=== PATIENT | male | born 1975 | race Caucasian/White ===

== ENCOUNTER 2016-09-01 06:30 | Emergency (ER) | payer MEDICAID ==
--- NOTE | ~2016-09-01 | ER ---
PATIENT'S NAME: FORREST GALLARDO [facility] AGE: 41 Y [address] ROOM: [place] [address] LOCATION: ED ADMIT DATE: 09/01/2016 ER/Outpatient Report DISCHARGE DATE: 09/01/2016 FAMILY PHYSICIAN: KIMI BENÍTEZ ATTENDING PHYSICIAN: Seth Coates CHIEF COMPLAINT: Right-sided abdominal pain. HISTORY OF PRESENT ILLNESS: The patient states that he woke up with pain this morning. The pain is aching and sharp. It does not radiate anywhere. He denies any recent injuries. He states he used methamphetamine last night. The pain started about an hour prior to arrival. He has not tried anything to make it better. He has a history of hepatitis and history of cholecystectomy. PAST MEDICAL HISTORY: Documented on the record and are reviewed by me. SOCIAL HISTORY: Documented on the record and are reviewed by me. MEDICATIONS: Documented on the record and are reviewed by me. ALLERGIES: DOCUMENTED ON THE RECORD AND ARE REVIEWED BY ME. REVIEW OF SYSTEMS: All systems reviewed and negative except as noted in the HPI. PHYSICAL EXAMINATION: VITAL SIGNS: Blood pressure 129/86, pulse 67, respiratory rate is 16, temperature 96.7, and SpO2 is 100% on room air. Pain is rated at 6/10. GENERAL: Age-appropriate male, in no obvious pain or discomfort. Resting comfortably on the exam table, indifferent to physician entrance and interacting with his phone. NEUROLOGIC: The patient is awake and alert. His GCS is 15. No focal deficits or asymmetry on exam. Walks without difficulty. HEENT: Normocephalic and atraumatic. The eyes are PERRL. The oropharynx is clear and moist. NECK: Supple. Trachea is midline. HEART: Regular rate and rhythm with no murmurs. LUNGS: Clear to auscultation bilaterally with no rhonchi, wheezes, or rales. ABDOMEN: Soft, nontender, and nondistended. No rebound or guarding. PATIENT'S NAME: FORREST GALLARDO [facility] AGE: 41 Y [address] ROOM: [place] [address] LOCATION: ED ADMIT DATE: 09/01/2016 ER/Outpatient Report DISCHARGE DATE: 09/01/2016 FAMILY PHYSICIAN: KIMI BENÍTEZ ATTENDING PHYSICIAN: Seth Coates BACK: Nontender to palpation throughout. No CVA tenderness. EXTREMITIES: Warm and well perfused. SKIN: Warm, dry, and intact. LABORATORY DATA AND IMAGING STUDIES: Labs and x-rays: Chest with abdominal films were unremarkable per my read. Labs: Sodium 142, potassium 3.6, chloride 106, CO2 is 29, BUN is 12, creatinine 0.7, and GFR is above 60. LFTs are within normal limits. Amylase and lipase at 71 and 389; CK-MB is 4.0, and troponin I is below threshold. GGT is 19. WBC is 7.3, hemoglobin 14.6, and platelets of 185,000. INR 0.9. Serum lactate is 1.0. IMPRESSION: Abdominal pain, not otherwise specified. EMERGENCY DEPARTMENT COURSE: The patient was evaluated. There was no concern for cardiac ischemia, but to be thorough, troponin was obtained. CK-MB is slightly elevated which I am attributing to a stimulant effect from his methamphetamines last night. He has no chest pain, no shortness of breath, and this is clearly below the costal margin. The patient was given a GI cocktail and Zofran with minimal improvement in his symptoms. He was offered Bentyl but declined. On multiple re-evaluations by both myself and the nurse, he was found to be sleeping and had to be woken up. His pain is not consistent with ischemic bowel. The patient was deemed appropriate for discharge. Recommend anti-inflammatories as needed and follow up with primary care physician. Return to the emergency department if worse. MD SMITA DELGADO/eric /[id number] d: 09/01/16 1733 t: 09/03/16 0631, OUTPATIENT REPORT
[2016-09-01 07:17] LABS: BASOPHIL % 0.5 %; EOSINOPHIL # 0.2 K/uL (0.0-0.5); EOSINOPHIL % 3.3 %; HEMATOCRIT 42.6 % (37.0-53.0); HEMOGLOBIN 14.6 g/dL (12.0-17.0); IMMATURE GRANULOCYTE % 0.3 %; LYMPHOCYTE # 3.2 K/uL (0.8-4.0); LYMPHOCYTE % 43.5 %; MCH 31.1 pg (27.0-34.0); MCHC 34.3 gm/dL (32.0-36.5); MCV 90.8 fl (83.0-98.0); MONOCYTE # 0.7 K/uL (0.0-1.0); MONOCYTE % 9.8 %; MPV 8.3 fl (9.4-12.4); NEUTROPHIL # (ANC) 3.1 K/uL (1.4-9.0); NEUTROPHIL % 42.6 %; NRBC % 0 /100WBC (0-0.00); PLATELET COUNT 185 K/uL (150-450); RBC 4.69 M/uL (4.00-6.00); RDW-CV 13.6 % (11.9-14.6); WBC 7.3 K/uL (4.0-11.0)
[2016-09-01 07:27] LABS: INR - (THERAPEUTIC) 0.9 (0.9-1.1); PROTIME 9.8 SECONDS (9.6-11.1); PTT 27 SECONDS (25-32)
[2016-09-01 07:41] LABS: ALBUMIN 3.6 gm/dL (3.5-5.0); ALK PHOS 66 IU/L (33-138); ALT 33 IU/L (12-78); ANION GAP 10.6 (10.0-19.0); AST 22 IU/L (10-40); BLOOD UREA NITROGEN 12 mg/dL (6-24); CALCIUM 8.5 mg/dL (8.5-10.5); CHLORIDE 106 mMol/L (96-110); CO2 29 mMol/L (22-32); CREATININE 0.7 mg/dL (0.6-1.3); ESTIMATED GFR (MDRD EQUATION) > 60; POTASSIUM 3.6 mMol/L (3.7-5.1); SODIUM 142 mMol/L (135-145); TOTAL BILIRUBIN 0.3 mg/dL (0.0-1.5); TOTAL PROTEIN 7.4 g/dL (6.0-8.4)
== END 2016-09-01 08:46 | disposition disaster alternative care site (69) ==
LOC: GMED 06:30
PROVIDERS: Emergency Medicine
DX: R10.9 Unspecified abdominal pain (principal); Z90.49 Acquired absence of other specified parts of digestive tract
CPT/HCPCS: J0500